=== PATIENT | male | born 1985 | race African-American/Black ===

== ENCOUNTER 2016-11-05 05:00 | Emergency (ER) | payer MEDICAID ==
[~2016-11-05] VITALS: Ht 175.3 cm; Wt 147.0 kg
[~2016-11-05 05:00] MED LIST: HYDR25TA PO; LISI10TA5 PO
[2016-11-05 05:26] VITALS: BP 145/82
== END 2016-11-05 06:00 | disposition left against medical advice (07) ==
LOC: ER 05:02
DX: R06.02 Shortness of breath (principal); M79.601 Pain in right arm; I10 Essential (primary) hypertension

== ENCOUNTER 2016-12-16 04:20 | Emergency (ER) | payer MEDICAID ==
[~2016-12-16] VITALS: Ht 175.3 cm; Wt 135.0 kg
[2016-12-16] MEDS ORDERED: SODIUM CHLORIDE 0.9% 1,000 ML IV ONE (06:47)
[2016-12-16 07:29] LABS: BASOPHILS % 0.2 % (0.0-2.0); EOSINOPHILS % 5.6 % (0.0-5.0); HEMATOCRIT. 39.1 % (42.0-52.0); HEMOGLOBIN. 12.6 g/dL (14.0-18.0); LYMPHOCYTES % 42.5 % (20.0-50.0); MEAN CORPUSCULAR HEMOGLOBIN 22.8 pg (28.0-32.0); MEAN CORPUSCULAR VOLUME 70.6 fL (80.0-94.0); MEAN PLATELET VOLUME 8.4 fl (7.4-10.4); NEUTROPHILS % 44.7 % (40.0-76.0); PLATELET 261 x1000/uL (130-400); RED BLOOD CELL COUNT 5.53 mill/uL (4.7-6.1); RED CELL DISTRIBUTION WIDTH 14.4 % (11.6-14.6)
[2016-12-16 07:40] LABS: CARBON DIOXIDE 25 mEq/L (21-32); CHLORIDE 106 mEq/L (98-107)
[2016-12-16 07:46] LABS: TROPONIN I < 0.02 ng/mL (0.00-0.04)
[2016-12-16 08:11] VITALS: BP 125/57
== END 2016-12-16 10:03 | disposition home or self-care (01) ==
LOC: ER 04:29
DX: R07.9 Chest pain, unspecified (principal); I10 Essential (primary) hypertension; F17.210 Nicotine dependence, cigarettes, uncomplicated; R00.2 Palpitations; R06.02 Shortness of breath
CPT/HCPCS: 36415; 71010; 80053; 84484; 85025; 93005; 96360; 99285; J7030; Z7610

== ENCOUNTER 2017-09-28 09:11 | Emergency (ER) | payer MEDICAID ==
[~2017-09-28] VITALS: Ht 177.8 cm; Wt 148.0 kg
[2017-09-28] MEDS ORDERED: KETOROLAC 30MG/ML VIAL IV STA (09:53)
[2017-09-28] MEDS ORDERED: ALBUTEROL (0.083%) 2.5MG/3ML NEB HHN STA (09:53)
[2017-09-28] MEDS ORDERED: ACETAMINOPHEN WITH CODEINE 300/30MG TABLET PO ONE (10:00)
[2017-09-28] MEDS ORDERED: BENZONATATE 100MG CAPSULE PO ONE (10:00)
[2017-09-28 11:08] VITALS: BP 147/79
== END 2017-09-28 11:22 | disposition home or self-care (01) ==
LOC: ER 09:11
DX: B34.9 Viral infection, unspecified (principal); I10 Essential (primary) hypertension; I49.1 Atrial premature depolarization; F12.90 Cannabis use, unspecified, uncomplicated
CPT/HCPCS: 71045; 93005; 94640; 96374; 99284; J1885; J7611; Z7610

== ENCOUNTER 2018-01-13 12:03 | Emergency (ER) | payer MEDICAID ==
[~2018-01-13] VITALS: Ht 177.8 cm; Wt 147.1 kg
[2018-01-13] MEDS ORDERED: KETOROLAC 60MG/2ML VIAL IM ONE (13:45)
[2018-01-13] MEDS ORDERED: METHYLPREDNISOLONE SOD SUCC 125 MG/2 ML VIAL IM ONE (13:45)
[2018-01-13] MEDS ORDERED: IPRATROPIUM/ALBUTEROL 0.5-3(2.5)MG/3ML NEB HHN ONE (13:45)
[2018-01-13 17:00] VITALS: BP 151/98
== END 2018-01-13 17:10 | disposition home or self-care (01) ==
LOC: ER 12:56
DX: J06.9 Acute upper respiratory infection, unspecified (principal); I10 Essential (primary) hypertension; F17.200 Nicotine dependence, unspecified, uncomplicated
CPT/HCPCS: 71045; 93005; 94640; 96372; 99284; J1885; J2930; J7620; Z7610

== ENCOUNTER 2018-05-25 03:37 | Emergency (ER) | payer MEDICAID ==
[~2018-05-25] VITALS: Ht 175.3 cm; Wt 142.5 kg
[2018-05-25] MEDS ORDERED: ASPIRIN 81MG TABLET PO ONE (04:15)
[2018-05-25] MEDS ORDERED: NITROGLYCERIN 0.4MG TABLET SL SL PRN (04:15)
[2018-05-25 05:21] LABS: CHLORIDE 106 mEq/L (98-107); ETHANOL BLOOD 216 mg/dL
[2018-05-25 05:34] LABS: HEMATOCRIT. 38.4 % (42.0-52.0); HEMOGLOBIN. 12.4 g/dL (14.0-18.0); MEAN CORPUSCULAR HEMOGLOBIN 23.4 pg (28.0-32.0); MEAN CORPUSCULAR VOLUME 72.5 fL (80.0-94.0); MEAN PLATELET VOLUME 8.9 fl (7.4-10.4); PLATELET 269 x1000/uL (130-400); RED BLOOD CELL COUNT 5.29 mill/uL (4.7-6.1); RED CELL DISTRIBUTION WIDTH 14.4 % (11.6-14.6)
[2018-05-25 05:44] LABS: D-DIMER 0.19 mg/L FEU (<0.50); PARTIAL THROMBOPLASTIN TIME 29.7 sec (23.4-31.0); PROTHROMBIN TIME 10.2 sec (9.1-11.1)
[2018-05-25 05:58] LABS: PLATELET ESTIMATE NORMAL
[2018-05-25 07:30] VITALS: BP 130/74
[2018-05-25 07:59] LABS: *AMPHETAMINES SCREEN URINE PRESUMTIVE POSITIVE (NEGATIVE); *BARBITURATES SCREEN URINE NEGATIVE (NEGATIVE); *BENZODIAZEPINES SCREEN URINE NEGATIVE (NEGATIVE); *COCAINE SCREEN URINE PRESUMTIVE POSITIVE (NEGATIVE); CANNABINOID URINE SCREEN PRESUMTIVE POSITIVE (NEGATIVE); METHADONE URINE SCREEN NEGATIVE (NEGATIVE); OPIATES URINE SCREEN NEGATIVE (NEGATIVE); PHENCYCLIDINE URINE SCREEN NEGATIVE (NEGATIVE)
== END 2018-05-25 08:36 | disposition left against medical advice (07) ==
LOC: ER 03:37 → EDBEDREQTM 05:49 → EDBEDREQ 05:49 → ER 08:36 → CANBEDREQ 16:29
DX: R07.89 Other chest pain (principal); F10.229 Alcohol dependence with intoxication, unspecified; I10 Essential (primary) hypertension; F17.200 Nicotine dependence, unspecified, uncomplicated; Y90.7 Blood alcohol level of 200-239 mg/100 ml
CPT/HCPCS: 36415; 71045; 80053; 80305; 83880; 84484; 85025; 85379; 85610; 85730; 93005; 99285; G0482

== ENCOUNTER 2018-07-13 08:29 | Emergency (ER) | payer MEDICAID ==
[~2018-07-13] VITALS: Ht 177.8 cm; Wt 144.7 kg
[2018-07-13] MEDS ORDERED: METHYLPREDNISOLONE SOD SUCC 125 MG/2 ML VIAL IM ONE (10:00)
[2018-07-13] MEDS ORDERED: IBUPROFEN 600MG TABLET PO STA (10:15)
[2018-07-13 10:30] VITALS: BP 141/67
== END 2018-07-13 10:57 | disposition home or self-care (01) ==
LOC: ER 08:29
DX: J06.9 Acute upper respiratory infection, unspecified (principal)
CPT/HCPCS: 71045; 93005; 99283

== ENCOUNTER 2018-10-20 03:08 | Emergency (ER) | payer MEDICAID ==
[~2018-10-20] VITALS: Ht 177.8 cm; Wt 143.0 kg
[2018-10-20] MEDS ORDERED: SODIUM CHLORIDE 0.9% 1,000 ML IV ONE (04:26)
[2018-10-20] MEDS ORDERED: DEXAMETHASONE 10 MG/ML VIAL IV ONE (04:30)
[2018-10-20 04:37] LABS: CHLORIDE 102 mEq/L (98-107)
[2018-10-20 04:39] LABS: BASOPHILS % 1.2 % (0.0-2.0); EOSINOPHILS % 4.1 % (0.0-5.0); HEMOGLOBIN. 13.4 g/dL (14.0-18.0); LYMPHOCYTES % 22.7 % (20.0-50.0); MEAN CORPUSCULAR HEMOGLOBIN 23.1 pg (28.0-32.0); MEAN CORPUSCULAR VOLUME 70.7 fL (80.0-94.0); MONOCYTES % 6.2 % (2.0-8.0); NEUTROPHILS % 65.8 % (40.0-76.0); PLATELET 294 x1000/uL (130-400); RED BLOOD CELL COUNT 5.79 mill/uL (4.7-6.1); RED CELL DISTRIBUTION WIDTH 14.1 % (11.6-14.6)
[2018-10-20 06:20] VITALS: BP 124/81
== END 2018-10-20 06:22 | disposition home or self-care (01) ==
LOC: ER 03:08
DX: J10.1 Influenza due to other identified influenza virus with other respiratory manifestations (principal); I10 Essential (primary) hypertension; F12.10 Cannabis abuse, uncomplicated; F17.210 Nicotine dependence, cigarettes, uncomplicated; Z71.6 Tobacco abuse counseling
CPT/HCPCS: 36415; 71045; 80053; 85025; 87804; 93005; 96374; 99284; 99406; J1100; J7030

== ENCOUNTER 2018-12-04 03:27 | Emergency (ER) | payer MEDICAID ==
[~2018-12-04] VITALS: Ht 177.8 cm; Wt 145.0 kg
[2018-12-04] MEDS ORDERED: NITROGLYCERIN 0.4MG TABLET SL SL PRN (04:00)
[2018-12-04] MEDS ORDERED: ASPIRIN 81MG TABLET PO ONE (04:00)
[2018-12-04] MEDS ORDERED: HYDROCHLOROTHIAZIDE 25MG TABLET PO ONE (04:15)
[2018-12-04] MEDS ORDERED: LISINOPRIL 20MG TABLET PO ONE (04:15)
[2018-12-04 04:16] LABS: CHLORIDE 106 mEq/L (98-107)
[2018-12-04 04:18] LABS: BASOPHILS % 0.3 % (0.0-2.0); EOSINOPHILS % 4.2 % (0.0-5.0); HEMOGLOBIN. 12.6 g/dL (14.0-18.0); LYMPHOCYTES % 26.1 % (20.0-50.0); MEAN CORPUSCULAR HEMOGLOBIN 23.1 pg (28.0-32.0); MEAN CORPUSCULAR VOLUME 71.4 fL (80.0-94.0); MEAN PLATELET VOLUME 8.3 fl (7.4-10.4); MONOCYTES % 8.6 % (2.0-8.0); NEUTROPHILS % 60.8 % (40.0-76.0); PLATELET 274 x1000/uL (130-400); RED BLOOD CELL COUNT 5.46 mill/uL (4.7-6.1); RED CELL DISTRIBUTION WIDTH 14.7 % (11.6-14.6)
[2018-12-04 04:20] LABS: ETHANOL BLOOD < 10 mg/dL
[2018-12-04 06:17] LABS: *AMPHETAMINES SCREEN URINE NEGATIVE (NEGATIVE); *BARBITURATES SCREEN URINE NEGATIVE (NEGATIVE); *BENZODIAZEPINES SCREEN URINE NEGATIVE (NEGATIVE); *COCAINE SCREEN URINE PRESUMTIVE POSITIVE (NEGATIVE); METHADONE URINE SCREEN NEGATIVE (NEGATIVE); OPIATES URINE SCREEN NEGATIVE (NEGATIVE)
[2018-12-04 06:18] LABS: CANNABINOID URINE SCREEN NEGATIVE (NEGATIVE); PHENCYCLIDINE URINE SCREEN PRESUMTIVE POSITIVE (NEGATIVE)
[2018-12-04] MEDS ORDERED: CLONIDINE 0.2MG TABLET PO ONE (06:45)
[2018-12-04 08:05] VITALS: BP 166/115
== END 2018-12-04 08:12 | disposition home or self-care (01) ==
LOC: ER 03:27
DX: R07.89 Other chest pain (principal); F14.10 Cocaine abuse, uncomplicated; F12.10 Cannabis abuse, uncomplicated; F17.200 Nicotine dependence, unspecified, uncomplicated; I10 Essential (primary) hypertension
CPT/HCPCS: 36415; 71045; 80305; 80320; 83880; 84484; 93005; 99284; 99406; G0480

== ENCOUNTER 2019-01-18 19:34 | Emergency (ER) | payer MEDICAID ==
[~2019-01-18] VITALS: Ht 177.8 cm; Wt 146.0 kg
[2019-01-18 19:55] VITALS: BP 175/91
== END 2019-01-18 23:10 | disposition left against medical advice (07) ==
LOC: ER 19:34
DX: Z53.21 Procedure and treatment not carried out due to patient leaving prior to being seen by health care provider (principal)
CPT/HCPCS: 93005

== ENCOUNTER 2019-03-13 15:57 | Emergency (ER) | payer MEDICAID ==
[~2019-03-13] VITALS: Ht 177.8 cm; Wt 147.0 kg
[2019-03-13] MEDS ORDERED: TRAMADOL 50MG TABLET PO ONE (18:00)
[2019-03-13] MEDS ORDERED: CLONIDINE 0.2MG TABLET PO ONE (18:00)
[2019-03-13 18:57] VITALS: BP 148/75
== END 2019-03-13 19:00 | disposition home or self-care (01) ==
LOC: ER 15:57
DX: I10 Essential (primary) hypertension (principal); R07.89 Other chest pain; G31.84 Mild cognitive impairment of uncertain or unknown etiology; F12.10 Cannabis abuse, uncomplicated; F17.210 Nicotine dependence, cigarettes, uncomplicated; Z91.14 Patient's other noncompliance with medication regimen
CPT/HCPCS: 36415; 84484; 93005; 99284

== ENCOUNTER 2019-07-13 21:06 | Emergency (ER) | payer MEDICAID | END 2019-07-14 04:30 | disposition left against medical advice (07) | LOC: ER 21:06 | DX: H92.09 Otalgia, unspecified ear (principal); Z53.21 Procedure and treatment not carried out due to patient leaving prior to being seen by health care provider ==

== ENCOUNTER 2019-07-14 14:14 | Emergency (ER) | payer MEDICAID ==
[~2019-07-14] VITALS: Ht 177.8 cm; Wt 146.0 kg
[2019-07-14 14:24] VITALS: BP 140/103
== END 2019-07-14 17:36 | disposition left against medical advice (07) ==
LOC: ER 14:14
DX: H92.02 Otalgia, left ear (principal); Z53.21 Procedure and treatment not carried out due to patient leaving prior to being seen by health care provider
CPT/HCPCS: 93005

== ENCOUNTER 2019-09-14 20:53 | Emergency (ER) | payer MEDICAID ==
[~2019-09-14] VITALS: Ht 177.8 cm; Wt 145.0 kg
[2019-09-15] MEDS ORDERED: IBUPROFEN 600MG TABLET PO STA (00:49)
[2019-09-15 03:03] VITALS: BP 158/70
== END 2019-09-15 03:04 | disposition home or self-care (01) ==
LOC: ER 23:30
DX: R07.89 Other chest pain (principal); R05 Cough; I10 Essential (primary) hypertension; F12.10 Cannabis abuse, uncomplicated
CPT/HCPCS: 71045; 93005; 99283

== ENCOUNTER 2023-03-30 06:05 | Emergency (ER) | payer MEDICAID ==
[~2023-03-30] VITALS: Ht 182.9 cm; Wt 109.0 kg
[2023-03-30 06:14] VITALS: BP 175/116; PULSE 80; RESP 16; TEMP 98.8; O2SAT 97
== END 2023-03-30 07:47 | disposition left against medical advice (07) ==
LOC: ER 06:59
DX: Z53.21 Procedure and treatment not carried out due to patient leaving prior to being seen by health care provider (principal)
CPT/HCPCS: 99281

== ENCOUNTER 2023-07-03 01:06 | Emergency (ER) | payer MEDICAID ==
[~2023-07-03] VITALS: Ht 185.4 cm; Wt 124.0 kg
[2023-07-03] MEDS ORDERED: ONDANSETRON HCL 4MG/2ML INJ IV STA (01:28)
[2023-07-03] MEDS ORDERED: FENTANYL CITRATE/PF 50MCG/ML 2ML VIAL IV ONE (01:30)
[2023-07-03] MEDS ORDERED: SODIUM CHLORIDE 0.9% 1,000 ML IV ONE ×2 (01:30)
[2023-07-03] MEDS ORDERED: TETANUS, DIPHTHERIA, PERTUSSIS VAC/PF 0.5ML (>10YR OLD) IM ONE (01:30)
[2023-07-03] MEDS ORDERED: LIDOCAINE HCL/EPINEPHRINE 1%-EPI 1:100,000 20 ML VIAL INFIL ONE (01:30)
[2023-07-03] MEDS ORDERED: CEFAZOLIN 1000MG PREMIX 50 ML IV ONE (01:30)
[2023-07-03] MEDS ORDERED: BACITRACIN ZINC OINT UDPKT TOP ONE ×2 (01:30→03:45)
[2023-07-03 01:37] VITALS: O2SAT 97
[2023-07-03 02:40] LABS: BASOPHILS % 1.5 % (0.0-2.0); DIFFERENTIAL COMMENT 0; EOSINOPHILS % 1.2 % (0.0-5.0); HEMATOCRIT. 37.5 % (42.0-52.0); HEMOGLOBIN. 12.3 g/dL (14.0-18.0); LYMPHOCYTES % 25.1 % (20.0-50.0); MEAN CORPUSCULAR HEMOGLOBIN 23.2 pg (28.0-32.0); MEAN CORPUSCULAR HGB CONC 32.7 g/dL (31.0-37.0); MEAN CORPUSCULAR VOLUME 70.9 fL (80.0-94.0); MEAN PLATELET VOLUME 8.3 fl (7.4-10.4); MONOCYTES % 4.4 % (2.0-8.0); NEUTROPHILS % 67.8 % (40.0-76.0); PLATELET 307 x1000/uL (130-400); RED BLOOD CELL COUNT 5.29 mill/uL (4.7-6.1); RED CELL DISTRIBUTION WIDTH 15.1 % (11.6-14.6); WHITE BLOOD COUNT 6.4 x1000/uL (4.5-11.0)
[2023-07-03 03:23] LABS: CALCIUM 9.2 mg/dL (8.7-10.4); CARBON DIOXIDE 27 mEq/L (21-32); CHLORIDE 100 mEq/L (98-107); CREATININE 1.1 mg/dL (0.6-1.3); GLUCOSE 144 mg/dL (70-105); SODIUM 139 mEq/L (136-145); UREA NITROGEN BLOOD 14 mg/dL (9-23)
[2023-07-03] MEDS ORDERED: ONDANSETRON HCL 4MG/2ML INJ ONE (03:43)
[2023-07-03] MEDS ORDERED: PROPOFOL 200MG/20ML VIAL IV ONE (03:45)
[2023-07-03] MEDS ORDERED: TETRACAINE 0.5% OPHTH DROPS 4ML LEFTEYE ONE (03:45)
[2023-07-03] MEDS ORDERED: FENTANYL CITRATE/PF 50MCG/ML 2ML VIAL ONE (03:48)
[2023-07-03] MEDS ORDERED: LIDOCAINE HCL 1% 20ML VIAL (Pyxis) INJ ONE (03:49)
[2023-07-03] MEDS ORDERED: CETI10CA2 MT ×2 (05:54→10:39)
[2023-07-03] MEDS ORDERED: AMOX1TAB16 MT ×2 (05:54→10:39)
[2023-07-03] MEDS ORDERED: HYDR-4001 MT ×2 (05:54→10:39)
[2023-07-03] MEDS ORDERED: IOHEXOL-300 100 ML BOTTLE ONE (06:43)
[2023-07-03 07:53] VITALS: BP 132/97; PULSE 63; RESP 18; TEMP 98.6
== END 2023-07-03 07:57 | disposition home or self-care (01) ==
LOC: ER 01:06
DX: S01.112D Laceration without foreign body of left eyelid and periocular area, subsequent encounter (principal); E11.9 Type 2 diabetes mellitus without complications; I10 Essential (primary) hypertension; F12.90 Cannabis use, unspecified, uncomplicated; Y08.89XA Assault by other specified means, initial encounter; Y93.89 Activity, other specified; Y92.89 Other specified places as the place of occurrence of the external cause; Y99.8 Other external cause status
CPT/HCPCS: 80048; 85025; 86850; 86900; 86901; 36415; 71045; 70450; 70486; 71260; 72125; 74177; 12014; 96374; 96375; 99291; J3010; Q9967; J3490 ×2; J2405; J2704; J7030; Z7610 ×5; J0690

== ENCOUNTER 2024-02-06 04:10 | Emergency (ER) | payer MEDICAID ==
[~2024-02-06] VITALS: Ht 177.8 cm; Wt 146.0 kg
[~2024-02-06 04:10] MED LIST changes: +AMOX1TAB16 MT; +CETI10CA2 MT; +HYDR-4001 MT; -HYDR25TA PO; -LISI10TA5 PO
[2024-02-06 04:14] VITALS: O2SAT 97
[2024-02-06 05:37] LABS: BASOPHILS % 0.7 % (0.0-2.0); DIFFERENTIAL COMMENT 0; EOSINOPHILS % 2.3 % (0.0-5.0); HEMATOCRIT. 37.7 % (42.0-52.0); HEMOGLOBIN. 12.3 g/dL (14.0-18.0); LYMPHOCYTES % 29.1 % (20.0-50.0); MEAN CORPUSCULAR HEMOGLOBIN 23.5 pg (28.0-32.0); MEAN CORPUSCULAR HGB CONC 32.8 g/dL (31.0-37.0); MEAN CORPUSCULAR VOLUME 71.8 fL (80.0-94.0); MONOCYTES % 6.6 % (2.0-8.0); NEUTROPHILS % 61.3 % (40.0-76.0); PLATELET 338 x1000/uL (130-400); RED BLOOD CELL COUNT 5.25 mill/uL (4.7-6.1); RED CELL DISTRIBUTION WIDTH 14.6 % (11.6-14.6); WHITE BLOOD COUNT 6.2 x1000/uL (4.5-11.0)
[2024-02-06 05:46] LABS: CHLORIDE 103 mEq/L (98-107); POTASSIUM 3.8 mEq/L (3.5-5.1); SODIUM 139 mEq/L (136-145)
[2024-02-06 05:47] LABS: CARBON DIOXIDE 28 mEq/L (21-32)
[2024-02-06 05:48] LABS: CALCIUM 9.8 mg/dL (8.7-10.4)
[2024-02-06 05:52] LABS: GLUCOSE 115 mg/dL (70-105); UREA NITROGEN BLOOD 10 mg/dL (9-23)
[2024-02-06] MEDS: AMOXICILLIN/POTASSIUM CLAVULANATE 875/125MG TAB PO ONE (05:52)
[2024-02-06] MEDS: KETOROLAC 30MG/ML VIAL IM ONE (05:53)
[2024-02-06 05:54] LABS: ALANINE AMINOTRANSFERASE 33 IU/L (10-49); ALBUMIN 5.1 g/dL (3.2-4.8); ASPARTATE AMINOTRANSFERASE 24 IU/L (<34)
[2024-02-06 05:55] LABS: BILIRUBIN TOTAL 0.3 mg/dL (0.1-1.0); PROTEIN TOTAL 8.1 g/dL (6.0-8.3)
[2024-02-06] MEDS ORDERED: AMOX1TAB16 MT (06:17)
[2024-02-06 06:23] VITALS: BP 144/90; PULSE 100; RESP 22; TEMP 98.1
== END 2024-02-06 06:23 | disposition home or self-care (01) ==
LOC: ER 05:00
DX: S00.36XA Insect bite (nonvenomous) of nose, initial encounter (principal); F12.90 Cannabis use, unspecified, uncomplicated; E11.9 Type 2 diabetes mellitus without complications; I10 Essential (primary) hypertension; W57.XXXA Bitten or stung by nonvenomous insect and other nonvenomous arthropods, initial encounter; Y93.89 Activity, other specified; Y92.89 Other specified places as the place of occurrence of the external cause; Y99.8 Other external cause status
CPT/HCPCS: 99283; 80053; 85025; 36415; 96372; J1885

== ENCOUNTER 2024-08-09 10:03 | Emergency (ER) | payer MEDICAID ==
[~2024-08-09] VITALS: Ht 172.7 cm; Wt 141.0 kg
[2024-08-09 10:06] VITALS: O2SAT 96
[2024-08-09] MEDS: IBUPROFEN 600MG TABLET PO ONE (12:32)
[2024-08-09] MEDS ORDERED: IBUP-2028 MT (13:33)
[2024-08-09 13:59] VITALS: BP 148/79; PULSE 88; RESP 18; TEMP 37.05852; O2SAT 97
== END 2024-08-09 14:02 | disposition home or self-care (01) ==
LOC: ER 10:03
DX: R50.9 Fever, unspecified (principal); F12.10 Cannabis abuse, uncomplicated; E11.9 Type 2 diabetes mellitus without complications; I10 Essential (primary) hypertension; Z79.899 Other long term (current) drug therapy
CPT/HCPCS: 71045; 99283